=== PATIENT | female | born 1950 | race Caucasian/White ===

== ENCOUNTER 2018-12-31 07:10 | Day surgery (SDC) | payer MEDICARE ==
[2018-12-29 10:50] LABS: BASOPHILS % (AUTO) 1.1 % (0.0-5.0); EOSINOPHILS % (AUTO) 7.2 % (0.0-8.0); HEMATOCRIT 33.7 % (36-48); LYMPHOCYTES % (AUTO) 15.1 % (21.0-51.0); MEAN CORPUSCULAR HEMOGLOBIN 32.5 pg (27.0-33.0); MEAN CORPUSCULAR HGB CONC 33.5 g/dL (32.0-36.0); MONOCYTES % (AUTO) 4.4 % (3.0-13.0); NEUTROPHILS % (AUTO) 72.2 % (40.0-77.0); NUCLEATED RED BLOOD CELLS 0.1 % (0.0-0.19); PLATELET COUNT (AUTO) 303 K/uL (130-400); RED BLOOD CELL COUNT(AUTO) 3.48 MIL/uL (4.00-5.50); RED CELL DISTRIBUTION WIDTH 21.2 % (11.0-15.5); WHITE BLOOD COUNT (AUTO) 5.9 K/uL (4.8-10.8)
[2018-12-29 10:56] VITALS: BP 119/60
[2018-12-29 11:11] LABS: INR 0.97 (0.85-1.15); PARTIAL THROMBOPLASTIN TIME 26.4 SEC (26.3-35.5); PROTHROMBIN TIME 10.2 SEC (9.6-11.6)
[2018-12-31] VITALS (8 sets, daily range): BP systolic 144–164; BP diastolic 63–79
[~2018-12-31] VITALS: Ht 162.6 cm; Wt 94.5 kg
[~2018-12-31 07:10] MED LIST: AMLO10TA7 PO; FURO20TA4 PO; HYDR500C2 PO; LEVO100T12 PO; LOSA25TA41 PO; MECL-111 PO; METO25TA6 PO; MONT10TA24 PO; OMEP20CA10 PO; TRAZ-187 PO; VENL-63 PO
[2018-12-31] MEDS ORDERED: SODIUM CHLORIDE 0.9% 1000ML 1,000 ML IV ONE (07:39)
--- NOTE | 2018-12-31 08:12 | NUR ---
SKIN MULTIPLE BRUISING NOTED TO BILATERAL UPPER EXTREMITIES, NO OPEN AREAS, NO SKIN BREAKDOWN NOTED
[2018-12-31] MEDS ORDERED: APIX5TAB PO (08:22)
--- NOTE | 2018-12-31 09:20 | NUR ---
PROCEDURE PT TAKEN TO LOCKSTITCH SLEEVE SETTER FOR PROCEDURE. PT AWAKE AND ALERT, DAUGHTER AT BEDSIDE.
[2018-12-31] MEDS ORDERED: SODIUM BICARB 50MEQ 50ML VIAL ONE (09:26)
[2018-12-31] MEDS ORDERED: LIDOCAINE HCL/EPINEPHRINE 50 ML VIAL IJ ONE (09:26)
[2018-12-31] MEDS ORDERED: LIDOCAINE HCL 1% MDV 50ML VIAL ONE (09:26)
[2018-12-31] MEDS ORDERED: MIDAZOLAM HCL 1 MG/ML 2ML VIAL ONE (09:55)
[2018-12-31] MEDS ORDERED: FENTANYL CITRATE PF 50 MCG/1 ML 2ML VIAL ONE (09:56)
[2018-12-31] MEDS ORDERED: OCTYL 2-CYANOACRYLATE 1 EACH TP ONE (10:23)
--- NOTE | 2018-12-31 11:15 | NUR ---
POST RECEIVED PT BACK FROM [employer], S/P PORTACATH PLACEMENT TO RIGHT UPPER CHEST AREA. NONADHESIVE DRESSING WITH TEGADERM DRESSING DRY AND INTACT. NO BLEEDING OR HEMATOMA NOTED. VS STABLE ON ARRIVAL. PLAN OF CARE DISCUSS WITH PTS DAUGHTER AND PATIENT. WILL CONTINUE TO MONITOR
[2018-12-31] MEDS: HYDROCODONE/ACETAMINOPHEN 5/325 MG TAB PO PRN ×2 (11:21→11:23)
[2018-12-31] MEDS ORDERED: HYDROCODONE/ACETAMINOPHEN 5/325 MG TAB PO SCH (11:30)
--- NOTE | 2018-12-31 12:43 | NUR ---
DC DC INSTRUCTIONS GIVEN TO PTS DAUGHTER, INSTRUCTED IN DETAILED DC ORDERS. DAUGHTER VERBALIZED UNDERSTANDING, PIV REMOVED, CATHETER INTACT, SITE ASYMPTOMATIC.
--- NOTE | 2018-12-31 13:10 | NUR ---
DC PT DC HOME VIA WC,NO DISTRESS NOTED, DENIES ANY PAIN OR DISCOMFORTS. DRESSING TO RIGHT CHEST AREA DRY AND INTACT, NO HEMATOMA, BLEEDING, VS STABLE. ACCOMPANIED BY DAUGHTER NAVDEEP
== END 2018-12-31 13:10 | disposition home or self-care (01) ==
LOC: DAH 07:10
PROVIDERS: ATTEND Internal Medicine Medical Oncology
DX: Z45.2 Encounter for adjustment and management of vascular access device (principal); N32.81 Overactive bladder; N13.30 Unspecified hydronephrosis; I10 Essential (primary) hypertension; J45.909 Unspecified asthma, uncomplicated; E03.9 Hypothyroidism, unspecified; Z86.73 Personal history of transient ischemic attack (TIA), and cerebral infarction without residual deficits; F32.9 Major depressive disorder, single episode, unspecified; Z98.890 Other specified postprocedural states; Z90.710 Acquired absence of both cervix and uterus; I48.0 Paroxysmal atrial fibrillation; C95.00 Acute leukemia of unspecified cell type not having achieved remission; Z79.899 Other long term (current) drug therapy
CPT/HCPCS: 36415; 36561; 50435; 77001; 85025; 85610; 85730; C1788; C1894; J1644 ×2; J2250; J3010; J3490 ×2; J7030; 99156; 99157